=== PATIENT | female | born 1970 | race African-American/Black ===

== ENCOUNTER 2024-11-01 18:11 | Emergency (ER) | payer BC, OTHER ==
[2024-11-01 20:28] LABS: #Basophils Less than 0.03 10x3/uL (0.0-0.2); %Basophils 0.2 % (0.0-1.0); %Eosinophils 5.4 % (0.0-10.0); %Lymphocytes 33.2 % (21.0-51.0); %Monocytes 7.2 % (0.0-10.0); %Neutrophils 53.6 % (42.0-75.0); Hematocrit 35.2 % (36.0-47.0); Mean Corpuscular HGB CONC 34.1 g/dL (32.0-36.0); Mean Corpuscular Hemoglobin 35.7 pg (27.0-31.0); Mean Corpuscular Volume 104.8 fL (78.0-98.0); Mean Platelet Volume 11.1 fL (7.4-10.4); Platelet Count 192 10x3/uL (130-400); RBC Distribution Width 14.2 % (11.5-14.5); Red Blood Cell (RBC) Count 3.36 mill/uL (4.20-5.40)
[2024-11-01 20:40] LABS: ALT (SGPT) 12 U/L (8-55); AST (SGOT) 32 U/L (5-34); Albumin 3.6 g/dL (3.5-5.0); Alkaline Phosphatase 68 U/L (40-110); Anion Gap 16 mmol/L (10-20); BUN (Urea Nitrogen) 18 mg/dL (9.8-20.1); Bilirubin, Total 0.6 mg/dL (0.2-1.2); Calc. Creatinine Clearance 0 mL/min (70-130); Calcium 9.8 mg/dL (7.8-10.44); Carbon Dioxide 22 mmol/L (22-29); Chloride 110 mmol/L (98-107); Estimated GFR 51; Globulin 4.5 g/dL (2.4-3.5); Glucose 71 mg/dL (70-105); Protein, Total 8.1 g/dL (6.0-8.3); Sodium 144 mmol/L (136-145)
== END 2024-11-01 20:54 | disposition left against medical advice (07) ==
LOC: ERS 18:11
DX: M79.672 Pain in left foot (principal); M79.671 Pain in right foot; F10.10 Alcohol abuse, uncomplicated; E11.9 Type 2 diabetes mellitus without complications
CPT/HCPCS: 36415; 71046; 80053; 85025; 87428

== ENCOUNTER 2024-11-16 10:39 | Emergency (ER) | payer BC, OTHER ==
[2024-11-16] MEDS ORDERED: Dextrose 10% in Water 250 ML ONE (10:42)
[2024-11-16 12:17] LABS: #Basophils Less than 0.03 10x3/uL (0.0-0.2); #Eosinophils Less than 0.03 10x3/uL (0.0-0.7); %Basophils 0.3 % (0.0-1.0); %Eosinophils 0.6 % (0.0-10.0); %Lymphocytes 13.3 % (21.0-51.0); %Monocytes 3.3 % (0.0-10.0); %Neutrophils 81.9 % (42.0-75.0); Hematocrit 38.7 % (36.0-47.0); Hemoglobin 12.5 g/dL (12.0-16.0); Mean Corpuscular HGB CONC 32.3 g/dL (32.0-36.0); Mean Corpuscular Hemoglobin 34.9 pg (27.0-31.0); Mean Corpuscular Volume 108.1 fL (78.0-98.0); Mean Platelet Volume 11.3 fL (7.4-10.4); Platelet Count 155 10x3/uL (130-400); RBC Distribution Width 14.4 % (11.5-14.5); Red Blood Cell (RBC) Count 3.58 mill/uL (4.20-5.40)
[2024-11-16 12:37] LABS: Acetaminophen Less than 10 mcg/mL (Less than 10); Alcohol 71.7 mg/dL (Less than 10); Salicylate Less than 8.0 mg/dL (Less than 8.0)
[2024-11-16 12:55] LABS: Bacteria/HPF 1+ HPF (None Seen); Bilirubin Negative (Negative); Blood, Urine Negative (Negative); CAUTI Indications for Culture Pelvic or flank pain; Clarity Clear (Clear); Glucose, Urine (Dipstick) 100 mg/dL (Negative); Ketone, Urine 40 mg/dL (Negative); Leukocyte 75 Leu/uL (Negative); Nitrite Negative (Negative); Protein, Urine (Dipstick) Negative (Neg-Trace); RBC/HPF 0-3 HPF (0-3); Specific Gravity, Urine 1.009 (1.002-1.036); Squamous Epithelial 0-3 HPF (0-3); Urobilinogen Normal mg/dL (Less than 2); WBC/HPF 0-3 HPF (0-3); pH, Urine 5.5 (5.0-9.0)
[2024-11-16 12:55] LABS: Phosphorus 7.3 mg/dL (2.5-4.5)
[2024-11-16 12:56] LABS: Urine Culture Reflex No No
[2024-11-16 12:58] LABS: Amphetamine Not Detected (NotDetected); Barbiturates Screen Not Detected (NotDetected); Benzodiazepine Screen Detected (NotDetected); Cocaine Metabolite Screen Not Detected (NotDetected); Methadone Not Detected (NotDetected); Methamphetamine Not Detected (NotDetected); Opiate Screen Not Detected (NotDetected); Oxycodone Screen Not Detected (NotDetected); Phencyclidine (PCP) Not Detected (NotDetected); THC/Cannabinoid Screen Not Detected (NotDetected); Tricyclic Screen Not Detected (NotDetected)
[2024-11-16 13:13] LABS: ALT (SGPT) 18 U/L (Less than 34); AST (SGOT) 76 U/L (11-34); Albumin 3.6 g/dL (3.1-4.5); Alkaline Phosphatase 81 U/L (40-110); Anion Gap 36 mmol/L (10-20); BUN (Urea Nitrogen) 18 mg/dL (9.8-20.1); Bilirubin, Total 0.7 mg/dL (0.3-1.2); Calc. Creatinine Clearance 0 mL/min (70-130); Carbon Dioxide 8 mmol/L (22-29); Chloride 99 mmol/L (98-107); Estimated GFR 43; Globulin 4.1 g/dL (2.4-3.5); Glucose 195 mg/dL (70-105); Lipase 18 U/L (8-78); Magnesium 1.4 mg/dL (1.6-2.6); Potassium 4.2 mmol/L (3.5-5.1); Protein, Total 7.7 g/dL (6.0-8.3); Sodium 139 mmol/L (136-145)
[2024-11-16] MEDS ORDERED: Magnesium 2 GM/50 ML BAG (IN WATER) ONE (13:44)
[2024-11-16 14:16] LABS: Analyzer IN Cardio ER; Base Excess -16.2 mEq/L (-2.0 to +3.0); Calcium, Ionized (venous) 0.97 mmol/L (1.16-1.32); Chloride (VBG) 95 mmol/L (98-106); Hematocrit-VBG 36 % (36.0-47.0); Hemoglobin (Hb) 12.4 g/dL (11.7-16.0); Potassium (VBG) 4.29 mmol/L (3.70-5.30); Sodium 135 mmol/L (133-146)
[2024-11-16 14:17] LABS: Actual Bicarbonate (HCO3v) 10.4 mEq/L (22-28); pH (venous) 7.199 (7.32-7.43)
== END 2024-11-16 14:45 | disposition home or self-care (01) ==
LOC: ERS 10:39
DX: E87.20 Acidosis, unspecified (principal); E87.29 Other acidosis; E86.0 Dehydration; E16.2 Hypoglycemia, unspecified; F19.90 Other psychoactive substance use, unspecified, uncomplicated
CPT/HCPCS: 36415; 36416; 80053; 80306; 80307; 82010; 82805; 83605; 83690; 83735; 84100; 85025; 93005; 96361; 96365; J3475